=== PATIENT | male | born 1960 | race African-American/Black ===

== ENCOUNTER 2019-12-09 08:15 | Emergency (ER) | payer OTHER ==
[~2019-12-09] VITALS: Ht 167.6 cm; Wt 77.1 kg
[2019-12-09] MEDS ORDERED: IBUPROFEN 600600 M1 PO (09:44)
[2019-12-09 09:58] VITALS: BP 174/105
== END 2019-12-09 09:58 | disposition home or self-care (01) ==
LOC: ER 08:15
DX: S01.112A Laceration without foreign body of left eyelid and periocular area, initial encounter (principal); M79.604 Pain in right leg; R22.0 Localized swelling, mass and lump, head; M79.605 Pain in left leg; Y04.2XXA Assault by strike against or bumped into by another person, initial encounter; Y93.89 Activity, other specified; Y92.89 Other specified places as the place of occurrence of the external cause; Y99.8 Other external cause status

== ENCOUNTER → 2019-12-16 | Emergency (ER) | payer OTHER ==
[~2019-12-16] VITALS: Ht 167.6 cm; Wt 86.2 kg
[~2019-12-16] MED LIST: IBUPROFEN 600600 M1 PO
[2019-12-16 12:49] VITALS: BP 130/84
== END ==
LOC: ER 12:49
DX: S01.112D Laceration without foreign body of left eyelid and periocular area, subsequent encounter (principal); I10 Essential (primary) hypertension; X58.XXXD Exposure to other specified factors, subsequent encounter

== ENCOUNTER 2020-08-30 04:01 | Emergency (ER) | payer OTHER ==
[~2020-08-30] VITALS: Ht 175.3 cm; Wt 81.7 kg
[2020-08-30 06:37] VITALS: BP 142/86
== END 2020-08-30 06:35 | disposition home or self-care (01) ==
LOC: ER 04:01
DX: T69.9XXA Effect of reduced temperature, unspecified, initial encounter (principal); I10 Essential (primary) hypertension; Z79.1 Long term (current) use of non-steroidal anti-inflammatories (NSAID)